=== PATIENT | female | born 1965 | race Caucasian/White ===

== ENCOUNTER 2017-01-14 12:04 | Emergency (ER) | payer OTHER ==
[~2017-01-14] VITALS: Ht 149.9 cm; Wt 67.1 kg
[2017-01-14] MEDS ORDERED: IV NORMAL SALINE 1000ML BAG 1,000 ML IV ONE (12:15)
[2017-01-14 12:32] LABS: BASO % 1 % (0-3); EOS % 3 % (0-3); HEMATOCRIT 37.6 % (36.0-47.0); HEMOGLOBIN 12.6 g/dL (12.0-15.5); LYMPH # 1.3 x10^3/uL (1.0-4.8); LYMPH % 21 % (24-48); MEAN CORPUSCULAR HEMOGLOBIN 30 pg (25-35); MEAN CORPUSCULAR HGB CONC 34 g/dL (31-37); MEAN CORPUSCULAR VOLUME 89 fL (79-100); MONO % 9 % (0-9); NEUT % 67 % (31-73); PLATELET COUNT 297 x10^3/uL (140-400); RED BLOOD COUNT 4.25 x10^6/uL (3.50-5.40); RED CELL DISTRIBUTION WIDTH 13.6 % (11.5-14.5); WHITE BLOOD COUNT 6.1 x10^3/uL (4.0-11.0)
[2017-01-14 12:37] LABS: CALCIUM 8.4 mg/dL (8.5-10.1); CREATININE 0.8 mg/dL (0.6-1.0); GFR 76.2; POTASSIUM 4.2 mmol/L (3.5-5.1)
--- NOTE | 2017-01-14 12:39 | RAD ---
Portable chest, 01/14/2017: History: Somnolent, possible drug overdose The heart size and pulmonary vascularity are normal. The lungs are clear. There is no evidence of pleural fluid. IMPRESSION: No acute cardiopulmonary abnormality is detected.
[2017-01-14 12:42] LABS: ALBUMIN 3.8 g/dL (3.4-5.0); ALBUMIN/GLOBULIN RATIO 1.1 (1.0-1.7); TOTAL BILIRUBIN 0.2 mg/dL (0.2-1.0); TOTAL PROTEIN 7.3 g/dL (6.4-8.2)
--- NOTE | 2017-01-14 12:55 | EKG ---
[facility] [address] [place] [address] Test Date: 2017-01-14 Test Time: 12:07:15 Pat Name: JOSSELIN MONTES Department: Room: Gender: F Floor Sander: : 1965 Requested By: DANIEL DARBY Order Number: [id number] Reading MD: Genet Akbar Measurements Intervals [place] Rate: 82 P: 45 RI: 138 QRS: 29 QRSD: 80 T: 24 QT: 358 QTc: 421 Interpretive Statements SINUS RHYTHM NORMAL EKG Electronically Signed On 01-17-2017 21:24:35 CDT by Genet Akbar
--- NOTE | 2017-01-14 13:07 | RAD ---
CT of the head without contrast, 01/14/2017: History: Drug overdose, somnolence The ventricles are within normal limits in size. There is no shift of the midline structures. There is no evidence of acute intracranial hemorrhage or mass effect. IMPRESSION: No acute intracranial abnormality is detected. PQRS Compliance Statement: One or more of the following individualized dose reduction techniques were utilized for this examination: 1. Automated exposure control 2. Adjustment of the mA and/or kV according to patient size 3. Use of iterative reconstruction technique
[2017-01-14 13:08] LABS: BARBITURATES NEG (NEG); BENZODIAZEPINES POS (NEG); CANNABINOIDS NEG (NEG); COCAINE NEG (NEG); METHADONE NEG (NEG); OPIATES POS (NEG); PHENCYCLIDINE NEG (NEG)
--- NOTE | 2017-01-14 13:31 | PHYS DOC ---
Past Medical History Past Medical History: Depression Additional Past Medical Histor: CHRONIC BACK PAIN Past Surgical History: Cholecystectomy, Tubal ligation Additional Past Surgical Histo: BACK SX Alcohol Use: None Drug Use: None Adult General Chief Complaint Chief Complaint: OVERDOSE HPI HPI 51-year-old female with a history of depression distant history of prior psychiatric admission now brought in by EMS for evaluation after an alleged overdose. Patient takes Xanax 1 mg 3 times a day. She states she was depressed and feeling suicidal and she took "a handful" of Xanax last night. She slept normally and then this morning she was upset so she took "another handful." She is awake and alert on arrival. Per EMS she was mildly sleepy en route via EMS .she is now alert and communicative without complaint except depression and suicidal thoughts. Patient later admitted to the nurses that she flushed some of the alleged overdose and thinks she only took about 5mg each time. Denies other coingestants or self injury. Review of Systems Review of Systems Constitutional: Denies fever or chills [] Eyes: Denies change in visual acuity, redness, or eye pain [] HENT: Denies nasal congestion or sore throat [] Respiratory: Denies cough or shortness of breath [] Cardiovascular: No additional information not addressed in HPI [] GI: Denies abdominal pain, nausea, vomiting, bloody stools or diarrhea [] : Denies dysuria or hematuria [] Musculoskeletal: Denies back pain or joint pain [] Integument: Denies rash or skin lesions [] Neurologic: Denies headache, focal weakness or sensory changes [] Endocrine: Denies polyuria or polydipsia [] Current Medications Current Medications Current Medications Medications (Trade) Dose Ordered Sig/Natividad Start Time Stop Time Status Last Admin Dose Admin Sodium Chloride 1,000 ml @ 1,000 mls/hr 1X ONCE 01/14/17 12:15 01/14/17 13:14 DC 01/14/17 12:51 1,000 MLS/HR Allergies Allergies Allergies Coded Allergies Type Severity Reaction Last Updated Verified codeine Allergy Intermediate extremity swelling 05/13/15 No Physical Exam Physical Exam Well-appearing female alert and communicative in no acute distress depressed mood and flat affect nonfocal neurologic exam. Constitutional: Well developed, well nourished, no acute distress, non-toxic appearance. [] HENT: Normocephalic, atraumatic, bilateral external ears normal, oropharynx moist, no oral exudates, nose normal. [] Eyes: PERRLA, EOMI, conjunctiva normal, no discharge. [] Neck: Normal range of motion, no tenderness, supple, no stridor. [] Cardiovascular:Heart rate regular rhythm, no murmur [] Lungs & Thorax: Bilateral breath sounds clear to auscultation [] Abdomen: Bowel sounds normal, soft, no tenderness, no masses, no pulsatile masses. [] Skin: Warm, dry, no erythema, no rash. [] Back: No tenderness, no CVA tenderness. [] Extremities: No tenderness, no cyanosis, no clubbing, ROM intact, no edema. [] Neurologic: Alert and oriented X 3, normal motor function, normal sensory function, no focal deficits noted. [] Psychologic: Affect normal, judgement normal, mood normal. [] Current Patient Data Vital Signs Vital Signs Date Time Temp Pulse Resp B/P (MAP) Pulse Ox O2 Delivery O2 Flow Rate FiO2 01/14/17 13:11 67 128/66 (86) 100 Room Air 01/14/17 12:05 97.6 16 97.6 Lab Values Laboratory Tests Test 01/14/17 12:15 01/14/17 12:40 01/14/17 12:42 White Blood Count 6.1 x10^3/uL (4.0-11.0) Red Blood Count 4.25 x10^6/uL (3.50-5.40) Hemoglobin 12.6 g/dL (12.0-15.5) Hematocrit 37.6 % (36.0-47.0) Mean Corpuscular Volume 89 fL (79-100) Mean Corpuscular Hemoglobin 30 pg (25-35) Mean Corpuscular Hemoglobin Concent 34 g/dL (31-37) Red Cell Distribution Width 13.6 % (11.5-14.5) Platelet Count 297 x10^3/uL (140-400) Neutrophils (%) (Auto) 67 % (31-73) Lymphocytes (%) (Auto) 21 % (24-48) L Monocytes (%) (Auto) 9 % (0-9) Eosinophils (%) (Auto) 3 % (0-3) Basophils (%) (Auto) 1 % (0-3) Neutrophils # (Auto) 4.1 x10^3uL (1.8-7.7) Lymphocytes # (Auto) 1.3 x10^3/uL (1.0-4.8) Monocytes # (Auto) 0.5 x10^3/uL (0.0-1.1) Eosinophils # (Auto) 0.2 x10^3/uL (0.0-0.7) Basophils # (Auto) 0.0 x10^3/uL (0.0-0.2) Sodium Level 144 mmol/L (136-145) Potassium Level 4.2 mmol/L (3.5-5.1) Chloride Level 107 mmol/L (98-107) Carbon Dioxide Level 30 mmol/L (21-32) Anion Gap 7 (6-14) Blood Urea Nitrogen 20 mg/dL (7-20) Creatinine 0.8 mg/dL (0.6-1.0) Estimated GFR (Cockcroft-Gault) 76.2 BUN/Creatinine Ratio 25 (6-20) H Glucose Level 84 mg/dL (70-99) Calcium Level 8.4 mg/dL (8.5-10.1) L Total Bilirubin 0.2 mg/dL (0.2-1.0) Aspartate Amino Transferase (AST) 21 U/L (15-37) Alanine Aminotransferase (ALT) 32 U/L (14-59) Alkaline Phosphatase 77 U/L (46-116) Total Protein 7.3 g/dL (6.4-8.2) Albumin 3.8 g/dL (3.4-5.0) Albumin/Globulin Ratio 1.1 (1.0-1.7) Salicylates Level < 2.8 mg/dL (2.8-20.0) L Salicylate Last Dose Date Unknown Salicylate Last Dose Time Unknown Acetaminophen Level < 2 mcg/ml (10-30) L Acetaminophen Last Dose Date Unknown Acetaminophen Last Dose Time Unknown Urine Opiates Screen Pos (NEG) Urine Methadone Screen Neg (NEG) Urine Barbiturates Neg (NEG) Urine Phencyclidine Screen Neg (NEG) Urine Amphetamine/Methamphetamine Neg (NEG) Urine Benzodiazepines Screen Pos (NEG) Urine Cocaine Screen Neg (NEG) Urine Cannabinoids Screen Neg (NEG) Urine Ethyl Alcohol Neg (NEG) POC Troponin I 0.00 ng/ml (<0.08) Laboratory Tests 01/14/17 12:15 Laboratory Tests 01/14/17 12:15 EKG EKG Normal sinus rhythm at 82 normal axis no STEMI [] Radiology/Procedures Radiology/Procedures Chest x-ray no acute disease interpreted by me [] Course & Med Decision Making Course & Med Decision Making Pertinent Labs and Imaging studies reviewed. (See chart for details). Signs and symptoms consistent with depression with suicidal ideation and intentional overdose. Well-appearing patient. Nonfocal neurologic exam. Initially suspect patient is overstating ingestion which she later confirmed. Ingestion of 5 mg acutely this patient describes is benign given her baseline of 3 mg a day by mouth. This accounts for her alert and communicative state. Full workup unremarkable. No further workup or treatment indicated. Patient is cleared and evaluated by psychiatric staff [facility]. Patient is deemed appropriate for inpatient psychiatric treatment and that is being arranged. She is voluntarily going for psychiatric treatment however if she changes her mind a court hold will be put in place given patient's suicidality. [] Dragon Disclaimer Dragon Disclaimer This electronic medical record was generated, in whole or in part, using a voice recognition dictation system. Departure Departure Impression: Primary Impression: Overdose Additional Impressions: Depression Suicidal ideation Disposition: 65 XFER TO PSYCH HOSP/UNIT Condition: STABLE Referrals: RADU GREENWOOD MD (PCP) Additional Instructions: You're being transferred to a psychiatric facility for inpatient care of your depression and suicidal ideation with intentional overdose. Good luck to you with your continued evaluation and treatment and follow-up with outpatient psychiatric services or primary care doctor upon discharge Problem Qualifiers DANIEL DARBY MD Jan 14, 2017 13:31
[2017-01-14 14:41] VITALS: BP 122/71
== END 2017-01-14 14:50 ==
LOC: ER 12:04 → EEVIPCON 12:04 → ER 14:50
DX: T42.4X2A Poisoning by benzodiazepines, intentional self-harm, initial encounter (principal); F32.9 Major depressive disorder, single episode, unspecified; G89.29 Other chronic pain; Z88.5 Allergy status to narcotic agent; Y92.89 Other specified places as the place of occurrence of the external cause
CPT/HCPCS: 36415; 70450; 71010; 80053; 80305; 80329; 84484; 85027; 93005; 96360; 99291; J7030; G0481

== ENCOUNTER → 2020-11-28 | Outpatient (CLI) | payer MEDICAID ==
--- NOTE | 2020-11-28 14:37 | KCIC ---
EXAM: Left wrist, 3 views. HISTORY: Pain. COMPARISON: None. FINDINGS: 3 views of the left wrist are obtained. There is no acute fracture, dislocation or subluxat ion. There is a tiny corticated ossicle at the base of the first metacarpal, likely due to a chronic fragment spur or chronic nonunited fracture fragment. There is minimal first carpometacarpal joint sp urring. There is a bone island within the trapezium. IMPRESSION: No acute osseous finding. Electronically signed by: Krystal Grewal MD (11/28/2020 2:34 PM) [id number]
== END ==
LOC: KCIC 14:16
PROVIDERS: ATTEND Physician Assistant Medical
DX: M77.8 Other enthesopathies, not elsewhere classified (principal)
CPT/HCPCS: 73110

== ENCOUNTER 2021-01-21 11:05 | Emergency (ER) | payer MEDICAID ==
[~2021-01-21] VITALS: Ht 149.9 cm; Wt 72.7 kg
[2021-01-21 11:25] VITALS: BP 149/70
--- NOTE | 2021-01-21 11:56 | PHYS DOC ---
Past Medical History Past Medical History: Arthritis, Depression, GERD Additional Past Medical Histor: CHRONIC BACK PAIN, Panic attacks Past Surgical History: Cholecystectomy, Tubal ligation Additional Past Surgical Histo: BACK SX Smoking Status: Never Smoker Alcohol Use: None Drug Use: None General Adult EDM: Chief Complaint: SKIN RASH/ABSCESS HPI: HPI: Patient is a 55 year old female who presents with vesicular rash with onset of last Saturday. Denies any new soaps lotions, insect exposure, or new medicines. Vesicular lesions on face, back of both hands, and legs. Lesions are puritic but not painful. Warm water worsens. Nothing improves. Pt has not tried any steroid lotions. Patient reports concern for possible poison anna exposure as she knows it is growing on her home. Review of Systems: Review of Systems: Constitutional: Denies fever or chills Eyes: Denies redness or eye pain HENT: Denies nasal congestion or sore throat Respiratory: Denies cough or shortness of breath Cardiovascular: Denies chest pain or palpitations GI: Denies abdominal pain, nausea, or vomiting : Denies dysuria or hematuria Skin: Reports pruritus and rash Neurologic: Denies headache, focal weakness or sensory changes Complete systems were reviewed and found to be within normal limits, except as documented in this note. Heart Score: C/O Chest Pain: N/A Allergies: Allergies: Allergies Coded Allergies Type Severity Reaction Last Updated Verified codeine Allergy Intermediate extremity swelling 05/13/15 No Physical Exam: PE: Constitutional: Well developed, well nourished, no acute distress, non-toxic appearance HENT: Normocephalic, atraumatic Eyes: Conjunctiva normal, no discharge Neck: Normal range of motion, supple Lungs & Thorax: No respiratory distress, equal chest rise and fall Cardiovascular: Regular rate and rhythm, no murmurs Abdomen: Soft, no tenderness, BSx4 Skin: Warm, dry, small vesicular rash to face, right arm and hand and left forearm Extremities: No tenderness, ROM intact, no edema Neurologic: Alert and oriented X 3, no focal deficits noted Psychologic: Affect normal, judgment normal EKG: EKG: [] Radiology/Procedures: Radiology/Procedures: [] Course & Med Decision Making: Course & Med Decision Making Pt presents with erythematous vesicular lesions on backs of hands, legs, face. Denies any exposure to potential irritants, but does have poison anna on her house. PE reveals rash that resembles contact dermatitis secondary to poison anna. Plant to treat with oral steroid. Patient stable for discharge with outpatient follow-up with PCP. Discussed findings and plan with patient, who acknowledges understanding and agreement. Uyen Disclaimer: Uyen Disclaimer: This electronic medical record was generated, in whole or in part, using a voice recognition dictation system. Departure Departure Impression: Primary Impression: Poison anna dermatitis Disposition: HOME / SELF CARE / HOMELESS Condition: STABLE Referrals: RADU GREENWOOD MD (PCP) Patient Instructions: Poison Anna, [id number] Scripts Prednisone (PREDNISONE) 20 Mg Tablet 2 TAB PO DAILY, #8 TAB Start this prescription tomorrow, Saturday01/22/21 Prov: DANIEL ARAGON DO 01/21/21 DANIEL ARAGON DO Jan 21, 2021 11:56
[2021-01-21] MEDS ORDERED: PRED20TA PO (11:59)
[2021-01-21] MEDS ORDERED: DEXAMETHASONE 4 MG TABLET PO ONE (12:30)
== END 2021-01-21 12:30 | disposition home or self-care (01) ==
LOC: ER 11:05
DX: L23.7 Allergic contact dermatitis due to plants, except food (principal); M19.90 Unspecified osteoarthritis, unspecified site; K21.9 Gastro-esophageal reflux disease without esophagitis; F32.9 Major depressive disorder, single episode, unspecified; G89.29 Other chronic pain; Z88.5 Allergy status to narcotic agent
CPT/HCPCS: 99283